=== PATIENT | female | born 1985 | race Caucasian/White ===

== ENCOUNTER → 2020-05-26 | Outpatient (CLI) | payer SELFPAY | LOC: M LABCAHC 16:30 | PROVIDERS: ATTEND Pediatrics | DX: Z11.59 Encounter for screening for other viral diseases (principal) ==

== ENCOUNTER → 2020-07-10 | Outpatient (REF) | payer OTHER ==
[2020-07-10 19:15] LABS: BLOOD UREA NITROGEN 14 MG/DL (7-18); CALCIUM LEVEL 9.2 MG/DL (8.5-10.1); CARBON DIOXIDE LEVEL 23 MEQ/L (21-32); CHLORIDE LEVEL 104 MEQ/L (98-107); CREATININE FOR GFR 0.82 MG/DL (0.55-1.30); GLOMERULAR FILTRATION RATE > 60.0 (>60); GLUCOSE, FASTING 89 MG/DL (70-100); POTASSIUM SERUM 3.9 MEQ/L (3.5-5.1); SODIUM LEVEL 140 MEQ/L (136-145)
== END ==
LOC: M LAB REF 16:30
PROVIDERS: ATTEND Registered Nurse
DX: Z13.220 Encounter for screening for lipoid disorders (principal)

== ENCOUNTER → 2021-06-09 | Outpatient (CLI) | payer OTHER ==
[2021-06-09 09:19] LABS: ESTRADIOL 759.2 PG/ML; PROGESTERONE 50.34 NG/ML
== END ==
LOC: M LAB 06:07
PROVIDERS: ATTEND Obstetrics & Gynecology Reproductive Endocrinology
DX: Z31.49 Encounter for other procreative investigation and testing (principal)

== ENCOUNTER → 2021-06-14 | Outpatient (CLI) | payer OTHER ==
[2021-06-14 13:04] LABS: PROGESTERONE 49.69 NG/ML
== END ==
LOC: M LAB 07:51
PROVIDERS: ATTEND Obstetrics & Gynecology Reproductive Endocrinology
DX: Z32.00 Encounter for pregnancy test, result unknown (principal)

== ENCOUNTER → 2021-06-16 | Outpatient (CLI) | payer OTHER ==
[2021-06-16 08:51] LABS: THYROID STIMULATING HORMONE 4.55 uIU/ML (0.358-3.740)
[2021-06-16 09:02] LABS: PROGESTERONE 59.42 NG/ML
[2021-06-16 09:03] LABS: ESTRADIOL 1047.9 PG/ML
== END ==
LOC: M LAB 07:58
PROVIDERS: ATTEND Obstetrics & Gynecology Reproductive Endocrinology
DX: Z32.01 Encounter for pregnancy test, result positive (principal)

== ENCOUNTER → 2021-06-18 | Outpatient (CLI) | payer OTHER ==
[2021-06-18 10:55] LABS: ESTRADIOL 1404.6 PG/ML; PROGESTERONE 59.91 NG/ML
== END ==
LOC: M LAB 09:15
PROVIDERS: ATTEND Obstetrics & Gynecology Reproductive Endocrinology
DX: Z32.01 Encounter for pregnancy test, result positive (principal)

== ENCOUNTER → 2021-06-25 | Outpatient (CLI) | payer OTHER ==
[2021-06-25 09:26] LABS: PROGESTERONE 28.49 NG/ML
[2021-06-25 09:29] LABS: ESTRADIOL 1857.4 PG/ML
== END ==
LOC: M LAB 08:00
PROVIDERS: ATTEND Obstetrics & Gynecology Reproductive Endocrinology
DX: Z32.01 Encounter for pregnancy test, result positive (principal); Z3A.01 Less than 8 weeks gestation of pregnancy

== ENCOUNTER → 2021-08-03 | Outpatient (REF) | payer OTHER ==
[2021-08-03 18:10] LABS: HEMATOCRIT 36.2 % (36.0-47.0); HEMOGLOBIN 11.8 g/dl (12.0-15.5); MEAN CORPUSCULAR HGB CONC 32.6 g/dl (32.0-36.5); MEAN CORPUSCULAR VOLUME 92.1 fl (80.0-96.0); PLATELET COUNT, AUTOMATED 226 10^3/uL (150-450); RED BLOOD COUNT 3.93 10^6/uL (4.00-5.40); WHITE BLOOD COUNT 10.5 10^3/uL (4.0-10.0)
[2021-08-03 19:08] LABS: HCG, SERUM QUANTITATIVE 89089 MIU/ML; HEPATITIS B SURFACE ANTIGEN NEGATIVE (NEGATIVE); HEPATITIS C VIRUS ABY INDEX 0.1 INDEX (<0.8); HIV 1&2 SCREEN CENTAUR NEGATIVE (NEGATIVE)
== END ==
LOC: M LAB REF 16:44
PROVIDERS: ATTEND Obstetrics & Gynecology
DX: Z32.01 Encounter for pregnancy test, result positive (principal)

== ENCOUNTER → 2021-11-30 | Outpatient (CLI) | payer OTHER ==
[2021-11-30 16:25] LABS: HEMATOCRIT 32.8 % (36.0-47.0); MEAN CORPUSCULAR HEMOGLOBIN 30.3 pg (27.0-33.0); MEAN CORPUSCULAR HGB CONC 33.5 g/dl (32.0-36.5); MEAN CORPUSCULAR VOLUME 90.4 fl (80.0-96.0); PLATELET COUNT, AUTOMATED 179 10^3/uL (150-450); RED BLOOD COUNT 3.63 10^6/uL (4.00-5.40); WHITE BLOOD COUNT 10.2 10^3/uL (4.0-10.0)
== END ==
LOC: M LAB 14:58
PROVIDERS: ATTEND Obstetrics & Gynecology
DX: Z34.02 Encounter for supervision of normal first pregnancy, second trimester (principal); Z3A.00 Weeks of gestation of pregnancy not specified
CPT/HCPCS: 36415; 82950; 85027; 86850; 86901; J2790

== ENCOUNTER → 2021-12-13 | Outpatient (CLI) | payer OTHER | LOC: M LAB 12-09 07:30 | PROVIDERS: ATTEND Obstetrics & Gynecology | DX: O99.810 Abnormal glucose complicating pregnancy (principal) ==

== ENCOUNTER → 2022-01-13 | Outpatient (REF) | payer OTHER | LOC: M LAB REF 12:11 | PROVIDERS: ATTEND Obstetrics & Gynecology | DX: Z34.03 Encounter for supervision of normal first pregnancy, third trimester (principal) ==

== ENCOUNTER 2022-01-22 15:11 | Inpatient (IN) | payer OTHER ==
[~2022-01-22] VITALS: Ht 165.1 cm; Wt 115.4 kg
[2022-01-22] VITALS (23 sets, daily range): BP systolic 78–168; BP diastolic 49–101
[2022-01-22] MEDS ORDERED: PRENTAB9 PO (15:34)
[2022-01-22] MEDS ORDERED: HOME MED LIST COMPLETE! XX SCH (15:35)
[2022-01-22] MEDS ORDERED: FENTANYL 2MCG/ML ROPIVACAINE 0.2% IN 0.9% NACL 100ML IVBAG As Ordered ONE (15:56)
[2022-01-22] MEDS ORDERED: ZOLO50TA PO (16:12)
[2022-01-22] MEDS ORDERED: LR 500 ML IV PRN (16:15)
[2022-01-22] MEDS ORDERED: EPIDURAL/PCA KEYS XX PRN (16:15)
[2022-01-22] MEDS ORDERED: NALOXONE INJ 0.4MG/1ML VIAL (J2310 PER 1MG) IV PRN (16:15)
[2022-01-22] MEDS ORDERED: ONDANSETRON 4MG 2ML VIAL IV PRN (16:15)
[2022-01-22] MEDS ORDERED: ePHEDrine SULFATE 25 MG/5 ML(5MG/ML) SYRINGE IVP PRN (16:15)
[2022-01-22] MEDS ORDERED: FENTANYL/ROPIVACAINE/NACL BAG 100 ML EPIDURAL SCH (16:15)
[2022-01-22] MEDS ORDERED: diphenhydrAMINE 50MG/ML VIAL (J1200) IV PRN (16:15)
[2022-01-22 16:16] LABS: HEMATOCRIT 33.6 % (36.0-47.0); HEMOGLOBIN 11.5 g/dl (12.0-15.5); MEAN CORPUSCULAR HEMOGLOBIN 30.3 pg (27.0-33.0); MEAN CORPUSCULAR HGB CONC 34.2 g/dl (32.0-36.5); MEAN CORPUSCULAR VOLUME 88.7 fl (80.0-96.0); PLATELET COUNT, AUTOMATED 163 10^3/uL (150-450); RED BLOOD COUNT 3.79 10^6/uL (4.00-5.40); WHITE BLOOD COUNT 9.7 10^3/uL (4.0-10.0)
[2022-01-22] MEDS ORDERED: LIDOCAINE 2% W/EPINEPHRINE 20ML VIAL **PRES FREE As Ordered ONE (16:54)
[2022-01-22] MEDS ORDERED: LIDOCAINE PRES-FREE 2% 10ML AMP As Ordered ONE (16:54)
[2022-01-22] MEDS ORDERED: OXYTOCIN 30 UNITS IN 0.9% NaCl 500ML IV BAG (J2590) As Ordered ONE (17:08)
[2022-01-22] MEDS ORDERED: METF10004 PO (17:38)
[2022-01-22] MEDS ORDERED: DIBUCAINE 1% OINTMENT 30GM TOP PRN (19:10)
[2022-01-22] MEDS ORDERED: ACETAMINOPHEN TAB 650MG DOSE (2X325MG) PO PRN (19:10)
[2022-01-22] MEDS ORDERED: DOCUSATE SODIUM 100MG CAPSULE PO PRN (19:10)
[2022-01-22] MEDS ORDERED: RHOGAM 300 MCG (1500 IU) INJ (J2790) IM SCH (19:10)
[2022-01-22] MEDS ORDERED: IBUPROFEN 800 MG TAB PO PRN (19:10)
[2022-01-22] MEDS: OXYTOCIN DRIP 30 UNITS in IV 1 EA IV SCH ×5 (19:56→21:34)
[2022-01-22] MEDS ORDERED: OXYTOCIN DRIP 30 UNITS in IV 1 EA IV PRN (20:05)
[2022-01-22] MEDS ORDERED: METHYLERGONOVINE MALEATE 0.2 MG/ML VIAL (J2210) IM ONE (20:05)
[2022-01-22 20:31] LABS: HEMATOCRIT 30.1 % (36.0-47.0); HEMOGLOBIN 9.8 g/dl (12.0-15.5); MEAN CORPUSCULAR HEMOGLOBIN 30.2 pg (27.0-33.0); MEAN CORPUSCULAR HGB CONC 32.6 g/dl (32.0-36.5); MEAN CORPUSCULAR VOLUME 92.6 fl (80.0-96.0); PLATELET COUNT, AUTOMATED 127 10^3/uL (150-450); RED BLOOD COUNT 3.25 10^6/uL (4.00-5.40); WHITE BLOOD COUNT 13.3 10^3/uL (4.0-10.0)
[2022-01-22 20:52] LABS: INR 1.02; PROTHROMBIN TIME 13.8 SECONDS (12.7-14.5)
[2022-01-22 20:53] LABS: PARTIAL THROMBOPLASTIN TIME 29.7 SECONDS (25.9-37.0)
[2022-01-22 20:55] LABS: ALBUMIN 2.1 GM/DL (3.2-5.2); ALT/SGPT 19 U/L (12-78); BILIRUBIN,TOTAL 0.1 MG/DL (0.2-1.0); BLOOD UREA NITROGEN 10 MG/DL (7-18); CALCIUM LEVEL 8.3 MG/DL (8.5-10.1); CARBON DIOXIDE LEVEL 20 MEQ/L (21-32); CHLORIDE LEVEL 111 MEQ/L (98-107); CREATININE FOR GFR 0.67 MG/DL (0.55-1.30); GLOMERULAR FILTRATION RATE > 60.0 (>60); GLUCOSE, FASTING 135 MG/DL (70-100); POTASSIUM SERUM 4.1 MEQ/L (3.5-5.1); SODIUM LEVEL 140 MEQ/L (136-145); TOTAL PROTEIN 5.1 GM/DL (6.4-8.2)
[2022-01-22] MEDS: ACETAMINOPHEN 500 MG TAB PO PRN (21:57)
[2022-01-23 02:25] VITALS: BP 124/72
[2022-01-23] MEDS: ACETAMINOPHEN 500 MG TAB PO PRN (04:07)
[2022-01-23 06:00] VITALS: BP 138/79
[2022-01-23] MEDS: PRENATAL VITAMINS CHEWABLE TABLET PO SCH (08:52)
[2022-01-23] MEDS ORDERED: SERTRALINE HCL 50 MG TAB PO SCH ×2 (09:00→21:00)
[2022-01-23 09:52] VITALS: BP 127/86
[2022-01-23] MEDS ORDERED: EUTH100T PO (11:38)
[2022-01-23] MEDS ORDERED: BENA25CA4 PO (11:38)
[2022-01-23] MEDS ORDERED: FISH1000 PO (11:38)
[2022-01-23] MEDS ORDERED: CALC-218 PO (11:38)
[2022-01-23] MEDS ORDERED: SUPETAB44 PO (11:38)
[2022-01-23] MEDS ORDERED: FERR325T3 PO (11:38)
[2022-01-23] MEDS ORDERED: TUMS750C5 PO (11:38)
[2022-01-23] MEDS ORDERED: FLUT1BLS4 IH (11:38)
[2022-01-23] MEDS ORDERED: HOME MED LIST COMPLETE! XX SCH (11:40)
[2022-01-23] MEDS ORDERED: FLON1SPR (12:22)
[2022-01-23] MEDS: IBUPROFEN 600MG TAB PO PRN (13:26)
[2022-01-23 17:11] VITALS: BP 126/78
[2022-01-23] MEDS: LEVOTHYROXINE 100MCG TABLET (0.1MG) PO SCH (17:35)
[2022-01-23 22:00] VITALS: BP 112/60
[2022-01-24 02:00] VITALS: BP 147/69
[2022-01-24 06:00] VITALS: BP 121/73
[2022-01-24] MEDS: LEVOTHYROXINE 100MCG TABLET (0.1MG) PO SCH (06:02)
[2022-01-24] MEDS: PRENATAL VITAMINS CHEWABLE TABLET PO SCH (08:10)
[2022-01-24] MEDS ORDERED: MEASLES,MUMPS,RUBELLA VACCINE INJ (MMR-II) (90707) SC.IMMUN ONE (09:00)
[2022-01-24 10:00] VITALS: BP 123/69
[2022-01-24] MEDS: IBUPROFEN 600MG TAB PO PRN (11:55)
== END 2022-01-24 13:25 | disposition home or self-care (01) | DRG 560 ==
LOC: M LDO 15:11 → M LDI 15:25 → M OBS 23:15
PROVIDERS: ADMIT Obstetrics & Gynecology; ATTEND Obstetrics & Gynecology
PROC: 10E0XZZ Delivery of Products of Conception, External Approach (ICD-10-PCS; principal; 2022-01-22)
PROC: 0KQM0ZZ Repair Perineum Muscle, Open Approach (ICD-10-PCS; 2022-01-22)
DX: O60.14X0 Preterm labor third trimester with preterm delivery third trimester, not applicable or unspecified (principal); Z37.2 Twins, both liveborn; Z3A.35 35 weeks gestation of pregnancy; O70.1 Second degree perineal laceration during delivery; O09.819 Supervision of pregnancy resulting from assisted reproductive technology, unspecified trimester; O30.033 Twin pregnancy, monochorionic/diamniotic, third trimester; F32.A Depression, unspecified; F41.9 Anxiety disorder, unspecified; O99.344 Other mental disorders complicating childbirth

== ENCOUNTER → 2022-08-18 | Outpatient (REF) | payer OTHER ==
[~2022-08-18] MED LIST: BENA25CA4 PO; CALC-218 PO; EUTH100T PO; FERR325T3 PO; FISH1000 PO; FLON1SPR; FLUT1BLS4 IH; METF10004 PO; PRENTAB9 PO; SUPETAB44 PO; TUMS750C5 PO; ZOLO50TA PO
[2022-08-18 17:40] LABS: HEMATOCRIT 40.5 % (36.0-47.0); HEMOGLOBIN 12.9 g/dl (12.0-15.5); MEAN CORPUSCULAR HEMOGLOBIN 28.4 pg (27.0-33.0); MEAN CORPUSCULAR HGB CONC 31.9 g/dl (32.0-36.5); MEAN CORPUSCULAR VOLUME 89.2 fl (80.0-96.0); PLATELET COUNT, AUTOMATED 245 10^3/uL (150-450); RED BLOOD COUNT 4.54 10^6/uL (4.00-5.40); WHITE BLOOD COUNT 6.3 10^3/uL (4.0-10.0)
[2022-08-18 17:48] LABS: HEMOGLOBIN A1c 5.3 % (4.0-6.0)
[2022-08-18 18:08] LABS: THYROID STIMULATING HORMONE 6.495 uIU/ML (0.55-4.78)
[2022-08-18 18:12] LABS: ALBUMIN 4.3 G/DL (3.2-5.2); ALKALINE PHOSPHATASE 71 U/L (46-116); ALT/SGPT 42 U/L (7.0-40); AST/SGOT 22 U/L (<34); BILIRUBIN,TOTAL 0.3 MG/DL (0.3-1.2); BLOOD UREA NITROGEN 15 MG/DL (9-23); CALCIUM LEVEL 9.2 MG/DL (8.5-10.1); CARBON DIOXIDE LEVEL 27 MMOL/L (20-31); CHLORIDE LEVEL 105 MMOL/L (98-107); CHOLESTEROL LEVEL 197 MG/DL (<200); CREATININE FOR GFR 0.62 MG/DL (0.55-1.30); GLOMERULAR FILTRATION RATE > 60.0 (>60); GLUCOSE, FASTING 74 MG/DL (60-100); NON-HDL-C 156 MG/DL; POTASSIUM SERUM 4.5 MMOL/L (3.5-5.1); SODIUM LEVEL 139 MMOL/L (136-145); TOTAL PROTEIN 7.8 G/DL (5.7-8.2); TRIGLYCERIDES LEVEL 115 MG/DL (<150)
== END ==
LOC: M LAB REF 16:53
PROVIDERS: ATTEND Nurse Practitioner Family
DX: Z86.32 Personal history of gestational diabetes (principal); Z68.38 Body mass index [BMI] 38.0-38.9, adult

== ENCOUNTER → 2022-11-01 | Outpatient (REF) | payer OTHER ==
[2022-11-01 17:32] LABS: THYROID STIMULATING HORMONE 3.309 uIU/ML (0.55-4.78)
[2022-11-01 17:33] LABS: FREE T4 0.86 NG/DL (0.89-1.76)
== END ==
LOC: M LAB REF 16:26
PROVIDERS: ATTEND Nurse Practitioner Family
DX: E03.9 Hypothyroidism, unspecified (principal)

== ENCOUNTER → 2023-02-10 | Outpatient (REF) | payer OTHER ==
[2023-02-10 12:00] LABS: BASO % 0.5 % (0.0-1.0); EOS # 0.1 10^3/uL (0.0-0.5); EOS % 1.2 % (0.0-3.0); HEMATOCRIT 37.9 % (36.0-47.0); HEMOGLOBIN 12.5 g/dl (12.0-15.5); LYMPH # 2.4 10^3/uL (1.5-5.0); LYMPH % 36.8 % (24.0-44.0); MEAN CORPUSCULAR VOLUME 87.9 fl (80.0-96.0); MONO # 0.4 10^3/uL (0.0-0.8); MONO % 6.6 % (2.0-8.0); NEUTROPHILS # 3.6 10^3/uL (1.5-8.5); NEUTROPHILS % 54.6 % (36.0-66.0); PLATELET COUNT, AUTOMATED 211 10^3/uL (150-450); RED BLOOD COUNT 4.31 10^6/uL (4.00-5.40); WHITE BLOOD COUNT 6.6 10^3/uL (4.0-10.0)
[2023-02-10 12:34] LABS: ALBUMIN 3.7 G/DL (3.2-5.2); BILIRUBIN,DIRECT 0.1 MG/DL (<0.4); BILIRUBIN,TOTAL 0.4 MG/DL (0.3-1.2); CHOLESTEROL RISK RATIO 3.35 (<5); HDL CHOLESTEROL 54.3 MG/DL (>40); LDL CHOLESTEROL 94.1 MG/DL (<100); NON-HDL-C 127.7 MG/DL; THYROID STIMULATING HORMONE 4.411 uIU/ML (0.55-4.78)
== END ==
LOC: M LAB REF 11:38
PROVIDERS: ATTEND Nurse Practitioner Family
DX: N92.6 Irregular menstruation, unspecified (principal); E03.9 Hypothyroidism, unspecified; E78.5 Hyperlipidemia, unspecified; R74.01 Elevation of levels of liver transaminase levels

== ENCOUNTER → 2023-05-04 | Outpatient (REF) | payer OTHER | LOC: M SFHCWAGY 17:52 | PROVIDERS: ATTEND Nurse Practitioner Family | DX: Z12.4 Encounter for screening for malignant neoplasm of cervix (principal) | CPT/HCPCS: 87624; G0123 ==

== ENCOUNTER → 2024-02-08 | Outpatient (REF) | payer OTHER ==
[2024-02-08 12:39] LABS: ALBUMIN 3.7 G/DL (3.2-5.2); ALKALINE PHOSPHATASE 65 U/L (46-116); ALT/SGPT 55 U/L (7.0-40); AST/SGOT 29 U/L (<34); BILIRUBIN,TOTAL 0.5 MG/DL (0.3-1.2); BLOOD UREA NITROGEN 11 MG/DL (9-23); CALCIUM LEVEL 9.1 MG/DL (8.5-10.1); CARBON DIOXIDE LEVEL 25 MMOL/L (20-31); CHLORIDE LEVEL 106 MMOL/L (98-107); CHOLESTEROL LEVEL 216 MG/DL (<200); CHOLESTEROL RISK RATIO 4.71 (<5); CREATININE FOR GFR 0.68 MG/DL (0.55-1.30); GLOMERULAR FILTRATION RATE > 60.0 (>60); GLUCOSE, FASTING 83 MG/DL (60-100); HDL CHOLESTEROL 45.8 MG/DL (>40); LDL CHOLESTEROL 127.2 MG/DL (<100); NON-HDL-C 170.2 MG/DL; POTASSIUM SERUM 4.1 MMOL/L (3.5-5.1); SODIUM LEVEL 139 MMOL/L (136-145); THYROID STIMULATING HORMONE 3.539 uIU/ML (0.55-4.78); TOTAL PROTEIN 7.2 G/DL (5.7-8.2); TRIGLYCERIDES LEVEL 215 MG/DL (<150)
[2024-02-08 12:48] LABS: HEMOGLOBIN A1c 5.2 % (4.0-6.0)
== END ==
LOC: M LAB REF 11:20
PROVIDERS: ATTEND Nurse Practitioner Family
DX: E03.9 Hypothyroidism, unspecified (principal); Z68.38 Body mass index [BMI] 38.0-38.9, adult; E66.9 Obesity, unspecified

== ENCOUNTER → 2024-05-10 | Outpatient (REF) | payer OTHER ==
[2024-05-10 13:50] LABS: ALBUMIN 3.5 G/DL (3.2-5.2); ALKALINE PHOSPHATASE 68 U/L (35-104); ALT/SGPT 43 U/L (7.0-40); AST/SGOT 17 U/L (<34); BILIRUBIN,DIRECT < 0.1 MG/DL (<0.4); BILIRUBIN,TOTAL 0.3 MG/DL (0.3-1.2); TOTAL PROTEIN 7.2 G/DL (5.7-8.2)
[2024-05-10 13:52] LABS: THYROID STIMULATING HORMONE 2.059 uIU/ML (0.55-4.78)
== END ==
LOC: M LAB REF 13:00
PROVIDERS: ATTEND Nurse Practitioner Family
DX: R74.01 Elevation of levels of liver transaminase levels (principal); E03.9 Hypothyroidism, unspecified

== ENCOUNTER → 2025-05-13 | Outpatient (REF) | payer OTHER ==
[2025-05-13 14:54] LABS: BASO # 0.1 10^3/uL (0.0-0.2); BASO % 0.9 % (0.0-1.0); EOS # 0.3 10^3/uL (0.0-0.5); EOS % 3.9 % (0.0-3.0); LYMPH # 2.6 10^3/uL (1.5-5.0); LYMPH % 31.8 % (24.0-44.0); MONO # 0.7 10^3/uL (0.0-0.8); MONO % 8.5 % (2.0-8.0); NEUTROPHILS # 4.4 10^3/uL (1.5-8.5); NEUTROPHILS % 54.5 % (36.0-66.0); PLATELET COUNT, AUTOMATED 251 10^3/uL (150-450)
[2025-05-13 15:00] LABS: ALT/SGPT 27 U/L (7.0-40); AST/SGOT 21 U/L (<34); CHOLESTEROL LEVEL 211 MG/DL (<200); CHOLESTEROL RISK RATIO 5.52 (<5); LDL CHOLESTEROL 117.6 MG/DL (<100); NON-HDL-C 172.8 MG/DL; TRIGLYCERIDES LEVEL 276 MG/DL (<150)
[2025-05-13 15:13] LABS: ESTIMATED AVERAGE GLUCOSE 100.0 MG/DL (60-110)
== END ==
LOC: M LAB REF 14:21
PROVIDERS: ATTEND Nurse Practitioner Family
DX: L30.1 Dyshidrosis [pompholyx] (principal); E66.9 Obesity, unspecified; E03.9 Hypothyroidism, unspecified; R74.01 Elevation of levels of liver transaminase levels